=== PATIENT | male | born 1950 | race Caucasian/White ===

== ENCOUNTER 2016-05-24 07:21 | Inpatient (IN) | payer OTHER ==
[~2016-05-24] VITALS: Ht 177.8 cm; Wt 98.1 kg
[2016-05-24] VITALS (8 sets, daily range): BP systolic 110–135; BP diastolic 70–81
[~2016-05-24 07:21] MED LIST: ASPI-496 PO; ATOR20TA9 PO; LISI-167 PO; SOTA80TA PO
[2016-05-24] MEDS ORDERED: PLEASE ENTER HEIGHT MC SCH (08:30)
[2016-05-24 09:40] LABS: HEMOGLOBIN 14.3 g/dL (13.7-18.0)
[2016-05-24 09:48] LABS: ASPARTATE AMINO TRANSFERASE 24 U/L (15-37); BLOOD UREA NITROGEN 18 mg/dL (7-18)
[2016-05-24 09:53] LABS: IS PT STATUS REG ER OR PRE ER? NO
[2016-05-24] MEDS ORDERED: AMIODARONE 150 MG in DEXTROSE 5% 100 ML IV ONE (10:00)
[2016-05-24] MEDS ORDERED: FILTER 0.22 MICRON IV ONE (10:00)
[2016-05-24] MEDS ORDERED: ONDANSETRON 2MG/ML, 2ML IVPush PRN (10:00)
[2016-05-24] MEDS ORDERED: DOCUSATE 100 MG CAPSULE PO PRN ×2 (10:00)
[2016-05-24] MEDS ORDERED: ACETAMINOPHEN 325 MG TABLET PO PRN (10:00)
[2016-05-24] MEDS: AMIODARONE 200 MG TABLET PO SCH ×3 (10:25→22:45)
[2016-05-24 10:49] LABS: PATH.CAST-FLAG NOT PRESENT; SPERM-FLAG NOT PRESENT; SRC-FLAG NOT PRESENT; XTAL-FLAG NOT PRESENT; YLC-FLAG NOT PRESENT
[2016-05-24] MEDS: HYDROcodone/APAP 5/325 TABLET PO PRN (10:51)
[2016-05-24 10:58] LABS: ICTOTEST NEGATIVE
[2016-05-24] MEDS: LORazepam 2 MG/ML, 1ML IVPush PRN ×2 (12:57→19:21)
[2016-05-24 15:16] LABS: IS PT STATUS REG ER OR PRE ER? NO
[2016-05-24] MEDS: ATORVASTATIN 40 MG TABLET PO SCH (20:48)
[2016-05-24] MEDS: SODIUM CHLORIDE FLUSH 10ML SYR IVF SCH (20:48)
[2016-05-25] MEDS ORDERED: ACETAMINOPHEN 325 MG TABLET PO PRN
[2016-05-25 01:31] VITALS: BP 137/83
[2016-05-25] MEDS: LORazepam 2 MG/ML, 1ML IVPush PRN ×4 (01:36→23:32)
[2016-05-25] MEDS ORDERED: METOPROLOL TARTRATE 25 MG TABLET PO ONE (02:00)
[2016-05-25] MEDS: HYDROcodone/APAP 5/325 TABLET PO PRN ×2 (02:27→20:20)
[2016-05-25 03:09] LABS: IS PT STATUS REG ER OR PRE ER? NO
[2016-05-25 05:54] VITALS: BP 128/80
[2016-05-25] MEDS: ASPIRIN 81 MG TABLET EC PO SCH (05:55)
[2016-05-25] MEDS: METOPROLOL SUCCINATE 50 MG TAB.ER.24H PO SCH (05:56)
[2016-05-25 07:05] VITALS: BP 116/76
[2016-05-25] MEDS: LISINOPRIL 10 MG TABLET PO SCH (09:06)
[2016-05-25] MEDS: AMIODARONE 200 MG TABLET PO SCH ×3 (09:06→20:20)
[2016-05-25] MEDS: SODIUM CHLORIDE FLUSH 10ML SYR IVF SCH ×2 (09:08→20:20)
[2016-05-25 10:00] LABS: IS PT STATUS REG ER OR PRE ER? NO
[2016-05-25 13:53] VITALS: BP 124/68
[2016-05-25] MEDS ORDERED: AMIODARONE 150 MG in DEXTROSE 5% 100 ML IV ONE ×2 (16:30→23:30)
[2016-05-25] MEDS ORDERED: FILTER 0.22 MICRON IV ONE ×2 (16:30→23:30)
[2016-05-25 19:27] VITALS: BP 129/81
[2016-05-25] MEDS: ATORVASTATIN 40 MG TABLET PO SCH (20:20)
[2016-05-25 23:19] VITALS: BP 141/85
[2016-05-26 01:44] VITALS: BP 117/70
[2016-05-26] MEDS: HYDROcodone/APAP 5/325 TABLET PO PRN ×4 (01:57→22:46)
[2016-05-26 05:32] VITALS: BP 115/75
[2016-05-26 05:33] LABS: BLOOD UREA NITROGEN 22 mg/dL (7-18)
[2016-05-26] MEDS: ASPIRIN 81 MG TABLET EC PO SCH (05:33)
[2016-05-26] MEDS: METOPROLOL SUCCINATE 50 MG TAB.ER.24H PO SCH (05:34)
[2016-05-26 06:29] VITALS: BP_SYST 119; BP_SYST 19; BP_DIAS 85
[2016-05-26] MEDS ORDERED: POTASSIUM CHLORIDE 20 MEQ TAB.ER.PRT PO SCH (08:00)
[2016-05-26] MEDS: LISINOPRIL 10 MG TABLET PO SCH (08:49)
[2016-05-26] MEDS: AMIODARONE 200 MG TABLET PO SCH ×3 (08:50→21:18)
[2016-05-26] MEDS: SODIUM CHLORIDE FLUSH 10ML SYR IVF SCH ×2 (08:50→21:17)
[2016-05-26] MEDS: LORazepam 2 MG/ML, 1ML IVPush PRN ×4 (10:40→23:48)
[2016-05-26] MEDS ORDERED: NITROGLYCERIN 0.4 MG/SPRAY SL PRN (11:00)
[2016-05-26] MEDS ORDERED: NITROGLYCERIN 0.4 MG BOTTLE (25 TABS) SL PRN (11:00)
[2016-05-26 13:38] VITALS: BP 119/75
[2016-05-26 19:34] VITALS: BP 114/74
[2016-05-26] MEDS: ATORVASTATIN 40 MG TABLET PO SCH (21:18)
[2016-05-27 00:54] VITALS: BP 118/81
[2016-05-27] MEDS: LORazepam 2 MG/ML, 1ML IVPush PRN ×8 (04:49→21:34)
[2016-05-27] MEDS: ASPIRIN 81 MG TABLET EC PO SCH (06:09)
[2016-05-27] MEDS: METOPROLOL SUCCINATE 50 MG TAB.ER.24H PO SCH (06:10)
[2016-05-27 06:59] VITALS: BP 122/84
[2016-05-27] MEDS: SODIUM CHLORIDE FLUSH 10ML SYR IVF SCH ×2 (08:13→21:35)
[2016-05-27] MEDS: LISINOPRIL 10 MG TABLET PO SCH (08:13)
[2016-05-27] MEDS: HYDROcodone/APAP 5/325 TABLET PO PRN ×7 (08:14→21:35)
[2016-05-27] MEDS: AMIODARONE 200 MG TABLET PO SCH (08:14)
[2016-05-27] MEDS ORDERED: FILTER 0.22 MICRON (AMIODARONE) IV PRN (10:00)
[2016-05-27] MEDS ORDERED: AMIODARONE 150 MG in DEXTROSE 5% 100 ML IV ONE (10:00)
[2016-05-27] MEDS ORDERED: AMIODARONE 900 MG in DEXTROSE 5% 482 ML IV PRN (10:00)
[2016-05-27] MEDS: MEXILETINE 150 MG CAPSULE PO SCH ×2 (10:05→16:32)
[2016-05-27 14:23] VITALS: BP 115/74
[2016-05-27] MEDS ORDERED: KETOROLAC 30 MG/1 ML IVPush ONE (17:00)
[2016-05-27 18:40] VITALS: BP 113/74
[2016-05-27] MEDS: ATORVASTATIN 40 MG TABLET PO SCH (21:35)
[2016-05-28 00:32] VITALS: BP 106/73
[2016-05-28] MEDS: HYDROcodone/APAP 5/325 TABLET PO PRN ×4 (00:50→20:30)
[2016-05-28] MEDS: MEXILETINE 150 MG CAPSULE PO SCH ×3 (00:50→17:35)
[2016-05-28] MEDS: LORazepam 2 MG/ML, 1ML IVPush PRN ×3 (00:50→10:02)
[2016-05-28] MEDS: ASPIRIN 81 MG TABLET EC PO SCH (06:12)
[2016-05-28] MEDS: METOPROLOL SUCCINATE 50 MG TAB.ER.24H PO SCH (06:13)
[2016-05-28 07:25] VITALS: BP 110/75
[2016-05-28] MEDS: LISINOPRIL 10 MG TABLET PO SCH (08:44)
[2016-05-28] MEDS: MORPHINE SULFATE 4 MG/ML, 1ML IVPush PRN ×3 (08:44→21:56)
[2016-05-28] MEDS: SODIUM CHLORIDE FLUSH 10ML SYR IVF SCH ×2 (08:47→20:30)
[2016-05-28] MEDS ORDERED: TRAZODONE 50MG TABLET PO PRN (10:00)
[2016-05-28] MEDS ORDERED: FENTANYL 25 MCG PATCH TD SCH (11:00)
[2016-05-28] MEDS: SERTRALINE 100MG TABLET PO SCH (12:35)
[2016-05-28] MEDS: AMIODARONE 200 MG TABLET PO SCH ×2 (12:36→20:30)
[2016-05-28 13:23] VITALS: BP 106/71
[2016-05-28 19:22] VITALS: BP 98/63
[2016-05-28] MEDS: ATORVASTATIN 40 MG TABLET PO SCH (20:29)
[2016-05-29] MEDS: MEXILETINE 150 MG CAPSULE PO SCH ×2 (01:13→08:14)
[2016-05-29 01:15] VITALS: BP 96/63
[2016-05-29] MEDS: MORPHINE SULFATE 4 MG/ML, 1ML IVPush PRN (01:31)
[2016-05-29] MEDS: LORazepam 2 MG/ML, 1ML IVPush PRN (02:06)
[2016-05-29 06:55] VITALS: BP 96/62
[2016-05-29] MEDS: AMIODARONE 200 MG TABLET PO SCH (08:13)
[2016-05-29] MEDS: LISINOPRIL 10 MG TABLET PO SCH (08:13)
[2016-05-29] MEDS: SERTRALINE 100MG TABLET PO SCH (08:13)
[2016-05-29] MEDS: ASPIRIN 81 MG TABLET EC PO SCH (08:14)
[2016-05-29] MEDS: METOPROLOL SUCCINATE 50 MG TAB.ER.24H PO SCH (08:14)
[2016-05-29] MEDS: HYDROcodone/APAP 5/325 TABLET PO PRN (08:15)
[2016-05-29] MEDS: SODIUM CHLORIDE FLUSH 10ML SYR IVF SCH (08:17)
[2016-05-29] MEDS ORDERED: MEXI150C PO (08:52)
[2016-05-29] MEDS ORDERED: FENT1PAT75 TD (08:52)
[2016-05-29] MEDS ORDERED: SERT100T5 PO (08:52)
[2016-05-29] MEDS ORDERED: METO-93 PO (08:52)
[2016-05-29] MEDS ORDERED: LORA-446 PO (08:52)
[2016-05-29] MEDS ORDERED: TRAZ50TA18 PO (08:52)
== END 2016-05-29 12:28 | disposition hospice, home (50) | DRG 310 ==
LOC: 5SO 07:21
PROVIDERS: ADMIT Internal Medicine Cardiovascular Disease; ATTEND Internal Medicine Cardiovascular Disease
DX: I47.2 Ventricular tachycardia (principal); I25.5 Ischemic cardiomyopathy; F41.9 Anxiety disorder, unspecified; E78.5 Hyperlipidemia, unspecified; I10 Essential (primary) hypertension; I25.10 Atherosclerotic heart disease of native coronary artery without angina pectoris; Z51.5 Encounter for palliative care; Z87.891 Personal history of nicotine dependence; Z95.5 Presence of coronary angioplasty implant and graft; Z95.810 Presence of automatic (implantable) cardiac defibrillator; Z66 Do not resuscitate
CPT/HCPCS: 36415; 71020; 80048; 80053; 81001; 83735; 84439; 84443; 84484; 85025; 85610; 93005; 93306; J1885; J2405; J0282; J2060